=== PATIENT | female | born 1935 | race Caucasian/White ===

== ENCOUNTER 2022-03-01 11:13 | Outpatient (CLI) | payer MEDICARE, OTHER, SELFPAY ==
[2022-03-01 11:44] LABS: Basophils Percent Auto 0.1 % (0.2-1.2); Eosinophils Absolute Auto 0.1 K/mm3 (0-0.3); Eosinophils Percent Auto 0.9 % (0-4.4); Hematocrit 30.4 % (37.0-47.0); Hemoglobin 9.5 g/dL (12.0-15.0); Immature Granulocyte Absolute 0.04 K/mm3 (0.00-0.031); Immature Granulocyte Percent A 0.5 % (0-0.5); Immature Reticulocyte Fraction 21.8 % (3.0-15.9); Lymphocytes Absolute Auto 1.55 K/mm3 (0.9-3.2); Lymphocytes Percent Auto 19.9 % (18.3-44.2); Mean Corpuscular HGB Conc 31.3 g/dl (32-36); Mean Corpuscular Hemoglobin 28.7 pg (26-34); Mean Corpuscular Volume 91.8 fl (80-100); Mean Platelet Volume 9.8 fl (7.4-10.4); Monocytes Absolute Auto 0.7 K/mm3 (0.1-0.6); Monocytes Percent Auto 8.9 % (2.6-8.5); Neutrophils Absolute Auto 5.4 K/mm3 (1.3-6.7); Neutrophils Percent Auto 69.7 % (45.5-73.1); Platelet Count Result 247 k/mm3 (150-375); Red Blood Count 3.31 M/mm3 (4.2-5.4); Red Cell Distribution Width 13.1 % (11.5-14.5); Reticulocyte Hemoglobin Conten 30.4 pg (28.2-35.7); Reticulocyte Percent 2.18 % (0.7-4.3); Reticulocytes Absolute 0.07 B/L (32.2-175.7); White Blood Count 7.8 K/mm3 (4.5-10.0)
[2022-03-01 16:39] LABS: Alanine Aminotransferase 19 U/L (6-35); Alkaline Phosphatase 55 U/L (38-126); Anion Gap 5 mmol/L (8-16); Aspartate Amino Transferase 25 U/L (14-36); Bilirubin,Total 0.3 mg/dL (0.2-1.3); Blood Urea Nitrogen 22 mg/dL (7-17); Calcium 8.8 mg/dL (8.4-10.2); Carbon Dioxide 29 mmol/L (22-30); Chloride 105 mmol/L (98-107); Estimated Glomerular Filt Rate > 60; Glucose 105 mg/dL (65-110); Lactate Dehydrogenase 197 U/L (120-246); Potassium 3.7 mmol/L (3.4-5.0); Sodium 139 mmol/L (137-145)
[2022-03-01 16:46] LABS: Iron 33 ug/dL (37-170)
[2022-03-01 16:51] LABS: Percent Iron Saturation 7 % (20-50)
[2022-03-01 17:47] LABS: Folic Acid 19.3 ng/mL (2.76->20)
[2022-03-06 11:38] LABS: Methylmalonic Acid 129 nmol/L (87-318)
== END 2022-03-01 11:14 | disposition home or self-care (01) ==
LOC: ANHLAB 11:22
PROVIDERS: Visit Provider Internal Medicine Hematology & Oncology
DX: D64.9 Anemia, unspecified (principal)
CPT/HCPCS: 36415; 80053; 82607; 82728; 82746; 83540; 83550; 83615; 83921; 85025; 85046

== ENCOUNTER 2023-05-28 07:37 | Day surgery (SDC) | payer MEDICARE, OTHER, SELFPAY ==
[2023-05-27 13:00] VITALS: BMI 24.0
--- NOTE | ~2023-05-28 | BM_ITS ---
EXAMINATION: CCL bone marrow asp w bx diag DATE: 05/28/2023 11:31 INDICATION: Chronic anemia. TECHNIQUE: A time-out was performed to verify the patient's name, date of , and procedure to b e performed. The procedure including the risks, benefits, and alternatives was discussed with the pat ient. Risks discussed included bleeding and infection. The patient understood the risks and agreed to proceed. The skin overlying the left ilium was prepped and draped in usual sterile fashion. Anesth etic was administered with 1% lidocaine subcutaneously. 25 mcg fentanyl IV was given for pain control . An 11 gauge needle was inserted into the ilium with fluoroscopic guidance. Bone marrow was aspirat ed. An 8 gauge needle was then inserted into the ilium with fluoroscopic guidance. A core bone marrow biopsy was obtained. There were no immediate complications. Fluoroscopy exposure time was 0.0 minute s. The total number of images was 36. FINDINGS: Real-time fluoroscopy demonstrates a marker overlying the left posterior superior iliac spi ne. IMPRESSION: 1. Fluoro-guided bone marrow aspiration. 2. Fluoro-guided bone marrow core biopsy. Reviewed, dictated and finalized at location A.
[2023-05-28 08:05] LABS: Hematocrit 28.4 % (37.0-47.0); Hemoglobin 8.7 g/dL (12.0-15.0); Mean Corpuscular HGB Conc 30.6 g/dl (32-36); Mean Corpuscular Volume 97.9 fl (80-100); Mean Platelet Volume 10.5 fl (7.4-10.4); Platelet Count Result 264 k/mm3 (150-375); Red Cell Distribution Width 13.8 % (11.5-14.5); White Blood Count 5.3 K/mm3 (4.5-10.0)
[2023-05-28 08:12] VITALS: BP 169/76; PULSE 76; RESP 16; TEMP 37; O2SAT 95
[2023-05-28 08:22] LABS: INR 0.9; Prothrombin Time 12.7 Seconds (11.1-14.7)
--- NOTE | 2023-05-28 08:59 | WPDMODSED ---
Moderate Sedation Note-Pt Data Patient Data Diagnosis: Chronic anemia. Present Complaint: Chronic anemia. Procedure to be performed/Plan: Fluoro-guided bone marrow biopsy of ilium. Allergies Allergy/AdvReac Type Severity Reaction Status Date / Time No Known Allergies Allergy Verified 05/28/23 07:58 Home Medications Medication Instructions Recorded Confirmed Type atorvastatin 40 mg tablet 40 mg PO DAILY 04/16/22 05/27/23 History escitalopram oxalate 10 mg tablet 10 mg PO DAILY 04/16/22 05/28/23 History losartan 25 mg tablet 25 mg PO DAILY 04/16/22 05/28/23 History nebivolol 20 mg tablet (Bystolic) 10 mg PO DAILY 04/16/22 05/28/23 History pantoprazole 40 mg tablet,delayed 40 mg PO QAM 04/16/22 05/27/23 History release rivaroxaban 20 mg tablet (Xarelto) 20 mg PO DAILY 04/16/22 05/27/23 History trazodone 50 mg tablet 50 mg PO HS 04/16/22 05/27/23 History furosemide 40 mg tablet 40 mg PO DAILY 05/27/23 05/27/23 History Sedation/Anesthesia: No previous sedation/anesthesia problems (including family history). [facility] Social History Social History Smoking status: Never smoker Living arrangements: with family Spiritual care concerns: No Mod Sed Physical Exam Physical Exam Pre Procedural Exam: Normal: Appearance, Lungs, Heart Rate, Heart Rhythm and Abdomen Hours since solid foods: 12 Hours since liquid intake: 12 Mallampati Classification: class II Internal Medicine - PN: Obj Da Vital Signs Vital Signs: Vital Signs - 24 hr 05/28/23 08:12 Temperature 37.0 C Pulse Rate 76 Respiratory Rate 16 Blood Pressure 169/76 H Pulse Oximetry 95 Oxygen Delivery Room Air Labs 05/28/23 07:58 Labs: Laboratory Results - last 24 hr 05/28/23 07:58 WBC 5.3 RBC 2.90 L Hgb 8.7 L Hct 28.4 L MCV 97.9 MCH 30.0 MCHC 30.6 L RDW 13.8 Plt Count 264 MPV 10.5 H PT 12.7 INR 0.9 ASA Classification/Sedation ASA Classification/Sedation ASA Class: II Emergent: No Risks: Risks, benefits and alternatives explained and patient/family accepted plan for sedation. Patient re-evaluated immediately prior to sedation.
[2023-05-28 09:30] VITALS: BP 149/67; PULSE 72; RESP 16; O2SAT 95
[2023-05-28 09:45] VITALS: BP 135/56; PULSE 69; RESP 16; O2SAT 93
[2023-05-28 10:00] VITALS: BP 133/69; PULSE 79; RESP 17; O2SAT 94
[2023-05-28 10:15] VITALS: BP 153/62; PULSE 71; RESP 16; O2SAT 93
== END 2023-05-28 10:50 | disposition home or self-care (01) ==
PROVIDERS: PCP Internal Medicine; Referring Provider Internal Medicine Hematology & Oncology; Visit Provider Radiology Diagnostic Radiology
DX: D64.89 Other specified anemias (principal); Z79.01 Long term (current) use of anticoagulants
CPT/HCPCS: 36415; 38222; 85027; 85610; 88305; 88311; 88313; 88342; J1642; J3010; J7040

== ENCOUNTER 2023-06-11 11:54 | Outpatient (CLI) | payer MEDICARE, OTHER, SELFPAY ==
[2023-06-11 12:12] LABS: Hematocrit 30.2 % (37.0-47.0); Hemoglobin 9.4 g/dL (12.0-15.0); Mean Corpuscular HGB Conc 31.1 g/dl (32-36); Mean Corpuscular Hemoglobin 30.3 pg (26-34); Mean Corpuscular Volume 97.4 fl (80-100); Mean Platelet Volume 10.3 fl (7.4-10.4); Platelet Count Result 316 k/mm3 (150-375); Red Cell Distribution Width 13.9 % (11.5-14.5); White Blood Count 6.5 K/mm3 (4.5-10.0)
[2023-06-11 20:53] LABS: Iron 85 ug/dL (37-170); Percent Iron Saturation 19 % (20-50)
[2023-06-14 12:22] LABS: Erythropoietin (EPO) 32.4 mIU/mL (2.6-18.5)
[2023-06-24 14:11] LABS: Soluble Transferrin Receptor 3.11 mg/L (0.76-1.76)
== END 2023-06-11 11:55 | disposition home or self-care (01) ==
LOC: ANHLAB 11:56
PROVIDERS: PCP Internal Medicine; Visit Provider Internal Medicine Hematology & Oncology
DX: D64.9 Anemia, unspecified (principal)
CPT/HCPCS: 36415; 82668; 82728; 83540; 83550; 84238; 85027

== ENCOUNTER 2023-08-07 11:23 | Outpatient (CLI) | payer MEDICARE, OTHER, SELFPAY ==
[2023-08-07 11:48] LABS: Basophils Percent Auto 0.2 % (0.2-1.2); Eosinophils Absolute Auto 0.1 K/mm3 (0-0.3); Eosinophils Percent Auto 1.7 % (0-4.4); Hematocrit 33.1 % (37.0-47.0); Hemoglobin 10.8 g/dL (12.0-15.0); Immature Granulocyte Absolute 0.04 K/mm3 (0.00-0.031); Immature Granulocyte Percent A 0.7 % (0-0.5); Lymphocytes Absolute Auto 1.05 K/mm3 (0.9-3.2); Lymphocytes Percent Auto 17.6 % (18.3-44.2); Mean Corpuscular HGB Conc 32.6 g/dl (32-36); Mean Corpuscular Hemoglobin 31.5 pg (26-34); Mean Corpuscular Volume 96.5 fl (80-100); Mean Platelet Volume 10.3 fl (7.4-10.4); Monocytes Absolute Auto 0.4 K/mm3 (0.1-0.6); Neutrophils Absolute Auto 4.4 K/mm3 (1.3-6.7); Neutrophils Percent Auto 73.8 % (45.5-73.1); Platelet Count Result 242 k/mm3 (150-375); Red Blood Count 3.43 M/mm3 (4.2-5.4); Red Cell Distribution Width 13.3 % (11.5-14.5)
[2023-08-07 12:46] LABS: Anion Gap 8 mmol/L (4-12); Blood Urea Nitrogen 22 mg/dL (7-17); Calcium 9.1 mg/dL (8.4-10.2); Carbon Dioxide 24 mmol/L (22-30); Chloride 106 mmol/L (98-107); Estimated Glomerular Filt Rate 59; Glucose 142 mg/dL (65-110); Potassium 3.7 mmol/L (3.4-5.0); Sodium 138 mmol/L (137-145)
[2023-08-07 13:01] LABS: Iron 64 ug/dL (37-170); Percent Iron Saturation 21 % (20-50)
[2023-08-09 14:38] LABS: Erythropoietin (EPO) 12.8 mIU/mL (2.6-18.5)
[2023-08-15 09:09] LABS: Soluble Transferrin Receptor 1.96 mg/L (0.76-1.76)
== END 2023-08-07 11:24 | disposition home or self-care (01) ==
LOC: ANHLAB 11:26
PROVIDERS: PCP Internal Medicine; Visit Provider Internal Medicine Hematology & Oncology
DX: D64.9 Anemia, unspecified (principal)
CPT/HCPCS: 36415; 80048; 82668; 82728; 83540; 83550; 84238; 85025

== ENCOUNTER 2023-11-27 09:08 | Outpatient (CLI) | payer MEDICARE, OTHER, SELFPAY ==
[2023-11-27 09:27] LABS: Mean Corpuscular HGB Conc 30.8 g/dl (32-36); Mean Corpuscular Hemoglobin 30.7 pg (26-34); Mean Corpuscular Volume 99.6 fl (80-100); Mean Platelet Volume 10.6 fl (7.4-10.4); Platelet Count Result 233 k/mm3 (150-375); Red Blood Count 2.61 M/mm3 (4.2-5.4); Red Cell Distribution Width 13.4 % (11.5-14.5); White Blood Count 6.8 K/mm3 (4.5-10.0)
[2023-11-27 13:34] LABS: Iron 43 ug/dL (37-170)
[2023-11-27 13:45] LABS: Percent Iron Saturation 11 % (20-50)
[2023-11-27 13:50] LABS: Vitamin B12 > 1000.0 pg/mL (239-931)
[2023-11-27 14:21] LABS: Folic Acid > 20.0 ng/mL (2.76->20)
== END 2023-11-27 09:09 | disposition home or self-care (01) ==
LOC: ANHLAB 09:11
PROVIDERS: PCP Internal Medicine; Visit Provider Internal Medicine Hematology & Oncology
DX: D64.9 Anemia, unspecified (principal)
CPT/HCPCS: 36415; 82607; 82728; 82746; 83540; 83550; 85027